=== PATIENT | female | born 1965 | race Caucasian/White ===

== ENCOUNTER 2018-01-13 19:42 | Emergency (ER) | payer MEDICAID, OTHER ==
[~2018-01-13] VITALS: Ht 170.2 cm; Wt 130.0 kg
[~2018-01-13 19:42] MED LIST: ALPR-475 PO; GABA-826 PO; IBUP-1223 PO; SUMA100T3 PO
[2018-01-13 20:44] VITALS: BP 156/72
== END 2018-01-13 20:46 | disposition home or self-care (01) ==
LOC: ED 20:40
DX: Z77.098 Contact with and (suspected) exposure to other hazardous, chiefly nonmedicinal, chemicals (principal)
CPT/HCPCS: 99281; 99283